=== PATIENT | female | born 2000 ===

== ENCOUNTER 2018-06-19 13:15 | Inpatient (IN) ==
[2018-06-19] MEDS ORDERED: BUTORPHANOL 2 MG/ML VIAL IV PRN (13:54)
[2018-06-19] MEDS ORDERED: ONDANSETRON 4 MG/2 ML VIAL IV PRN (13:54)
[2018-06-19 14:55] LABS: Basophils % 0.2 % (0.0-0.8); Eosinophils # 0.1 10*3/uL (0.0-0.87); Hemoglobin 11.1 GM/DL (12.0-16.0); Immature Granulocytes % 0.7 %; Immature Granulocytes Absolute 0.07 #; Lymphocytes # 2.3 10*3/uL (1.4-4.0); Mean Corpuscular HGB Conc 32.6 GM/DL (32-36); Mean Corpuscular Hemoglobin 28 PG (27-34); Mean Corpuscular Volume 86.3 FL (87-102); Mean Platelet Volume 10.1 FL (9.6-12.0); Monocytes # 0.8 10*3/uL (0.11-0.8); Monocytes % 8.8 % (1.7-12.7); Neutrophils # 6.2 10*3/uL (1.4-7.4); Neutrophils % 65.3 % (38.7-73.9); Platelet Count 341 T/CUMM (130-400); Red Blood Count 3.94 MC/CUMM (3.8-5.5); Red Cell Distribution Width 14.4 % (9.3-17.3); White Blood Count 9.5 T/CUMM (4-12)
[2018-06-19 15:23] LABS: Albumin 2.2 G/DL (3.4-5.0); Bilirubin,Total 0.4 MG/DL (0.2-1.0); Calcium 8.1 MG/DL (8.5-10.1); Osmolality,Calculated 277.3 MOS/KG (273-304); Potassium 3.9 MMOL/L (3.5-5.1); Total Protein 6.6 G/DL (6.4-8.3)
[2018-06-20] MEDS: LACTATED RINGERS 1,000 ML IV SCH ×5 (03:50→20:27)
[2018-06-20] MEDS ORDERED: CITRIC ACID/SODIUM CITRATE 30 ML UDCUP PO ONE (04:41)
[2018-06-20] MEDS ORDERED: diphenhydrAMINE 50 MG/1 ML VIAL IV PRN ×2 (04:41)
[2018-06-20] MEDS ORDERED: ePHEDrine 50 MG/ML AMP IV PRN (04:41)
[2018-06-20] MEDS ORDERED: FAMOTIDINE 20 MG/2 ML VIAL IV ONE (04:41)
[2018-06-20] MEDS ORDERED: PROMETHAZINE 25 MG/1 ML VIAL IM ONE (04:41)
[2018-06-20] MEDS ORDERED: LACTATED RINGERS 1,000 ML IV ONE (04:41)
[2018-06-20] MEDS ORDERED: hydrOXYzine HCL 25 MG/1 ML VIAL IM PRN (04:41)
[2018-06-20] MEDS ORDERED: NALOXONE 0.4 MG/ML VIAL IV PRN (04:41)
[2018-06-20] MEDS: OXYTOCIN/LR 20 UNIT/1,000 ML BAG IV SCH (05:45)
[2018-06-20] MEDS ORDERED: ceFAZolin 3,000 MG in SYRINGE 1 EACH IV ONE (07:41)
[2018-06-20] MEDS ORDERED: OXYTOCIN/LR 20 UNIT/1,000 ML BAG IV ONE ×2 (07:45→08:34)
[2018-06-20] MEDS ORDERED: SODIUM CHLORIDE 0.9% 100 ML IV ONE (07:57)
[2018-06-20] MEDS ORDERED: SIMETHICONE CHEW 80 MG TABLET PO PRN (08:34)
[2018-06-20] MEDS ORDERED: ACETAMINOPHEN 325 MG TABLET PO PRN (08:34)
[2018-06-20] MEDS ORDERED: ONDANSETRON 4 MG/2 ML VIAL IV PRN (08:34)
[2018-06-20] MEDS ORDERED: RHO(D) IMMUNE GLOBULIN 300 MCG SYRINGE IM ONE (08:34)
[2018-06-20] MEDS ORDERED: MORPHINE 10 MG/10 ML VIAL ONE (08:45)
[2018-06-20] MEDS ORDERED: BUPIVACAINE SPINAL 0.75% 2 ML AMP SPINAL ONE (08:46)
[2018-06-20] MEDS ORDERED: fentaNYL 100 MCG/2 ML VIAL ONE (08:46)
[2018-06-20 11:06] LABS: Apearance,Urine Slightly Hazy (Clear); Bilirubin,Urine Negative (Negative); Blood, Urine Large mg/dL (Negative); Glucose,Urine (UA) Negative (Negative); Ketones,Urine 5 mg/dL (Negative); Mucus,Urine Occasional /LPF (Occasional); Nitrite,Urine Negative (Negative); Protein,Urine 100 MG/DL; RBC,Urine 100 /HPF (0-4); Squamous Epithelial Cell,Urine Occasional /HPF (0-10); Urine Color Yellow (Yellow); Urine Specific Gravity 1.018 (1.001-1.035); Urine Urobilinogen < 2.0 EU/DL (0.2-1.0); WBC,Urine 3 /HPF (0-6)
[2018-06-20] MEDS: ceFAZolin 1,000 MG in SYRINGE 1 EACH IV SCH (15:41)
[2018-06-20 16:40] LABS: Basophils % 0.1 % (0.0-0.8); Eosinophils % 0.1 % (0.00-10.9); Hematocrit 32.3 VOL% (35.7-47.0); Hemoglobin 10.7 GM/DL (12.0-16.0); Immature Granulocytes % 0.5 %; Immature Granulocytes Absolute 0.08 #; Lymphocytes % 13.5 % (21.3-54.2); Mean Corpuscular HGB Conc 33.1 GM/DL (32-36); Mean Corpuscular Hemoglobin 28 PG (27-34); Mean Corpuscular Volume 85.4 FL (87-102); Mean Platelet Volume 10.1 FL (9.6-12.0); Monocytes # 1.1 10*3/uL (0.11-0.8); Monocytes % 7.1 % (1.7-12.7); Neutrophils # 11.9 10*3/uL (1.4-7.4); Neutrophils % 78.7 % (38.7-73.9); Platelet Count 283 T/CUMM (130-400); Red Blood Count 3.78 MC/CUMM (3.8-5.5); Red Cell Distribution Width 14.3 % (9.3-17.3); White Blood Count 15.1 T/CUMM (4-12)
[2018-06-20] MEDS: fentaNYL 2 MCG/ROPIV 0.2% EPID 100 ML EPIDURAL SCH (20:25)
[2018-06-20] MEDS: DOCUSATE SODIUM 100 MG CAPSULE PO SCH ×2 (20:26→23:01)
[2018-06-20] MEDS: MULTIVITAMIN (PRENATAL) TABLET PO SCH (20:27)
[2018-06-20] MEDS ORDERED: ceFAZolin 1,000 MG in SYRINGE 1 EACH IV SCH (23:30)
[2018-06-21] MEDS: ceFAZolin 1,000 MG in SYRINGE 1 EACH IV SCH (00:50)
[2018-06-21] MEDS: LACTATED RINGERS 1,000 ML IV SCH ×5 (04:34→22:30)
[2018-06-21 06:00] LABS: Basophils % 0.2 % (0.0-0.8); Eosinophils % 0.2 % (0.00-10.9); Hematocrit 32.1 VOL% (35.7-47.0); Hemoglobin 10.6 GM/DL (12.0-16.0); Immature Granulocytes % 0.4 %; Immature Granulocytes Absolute 0.05 #; Lymphocytes # 2.1 10*3/uL (1.4-4.0); Lymphocytes % 16.7 % (21.3-54.2); Mean Corpuscular Hemoglobin 28 PG (27-34); Mean Corpuscular Volume 84.7 FL (87-102); Mean Platelet Volume 10.2 FL (9.6-12.0); Monocytes # 0.7 10*3/uL (0.11-0.8); Monocytes % 5.9 % (1.7-12.7); Neutrophils # 9.6 10*3/uL (1.4-7.4); Neutrophils % 76.6 % (38.7-73.9); Platelet Count 276 T/CUMM (130-400); Red Blood Count 3.79 MC/CUMM (3.8-5.5); Red Cell Distribution Width 14.6 % (9.3-17.3); White Blood Count 12.5 T/CUMM (4-12)
[2018-06-21] MEDS: MAGNESIUM HYDROXIDE SUSP 30 ML UDCUP PO PRN ×2 (08:42→19:44)
[2018-06-21] MEDS: DOCUSATE SODIUM 100 MG CAPSULE PO SCH ×3 (08:43→22:28)
[2018-06-21] MEDS: MULTIVITAMIN (PRENATAL) TABLET PO SCH (08:43)
[2018-06-21] MEDS: IBUPROFEN 800 MG TABLET PO PRN ×2 (08:45→19:43)
[2018-06-21] MEDS ORDERED: BISACODYL 10 MG SUPP RECTAL PRN (22:10)
[2018-06-21] MEDS: fentaNYL 2 MCG/ROPIV 0.2% EPID 100 ML EPIDURAL SCH (22:29)
[2018-06-21] MEDS: OXYTOCIN/LR 20 UNIT/1,000 ML BAG IV SCH (22:29)
[2018-06-22] MEDS: IBUPROFEN 800 MG TABLET PO PRN (04:26)
[2018-06-22] MEDS: LACTATED RINGERS 1,000 ML IV SCH (05:46)
[2018-06-22] MEDS: OXYTOCIN/LR 20 UNIT/1,000 ML BAG IV SCH (05:46)
[2018-06-22 07:20] VITALS: BP 120/67
[2018-06-22] MEDS: MULTIVITAMIN (PRENATAL) TABLET PO SCH (09:02)
[2018-06-22] MEDS: DOCUSATE SODIUM 100 MG CAPSULE PO SCH (09:02)
[2018-06-22] MEDS ORDERED: DIPH/TET/ACEL PERT BOOSTER VACCINE 0.5 ML VIAL IM ONE (10:08)
== END 2018-06-22 13:10 | disposition home or self-care (01) | DRG 540 ==
LOC: N.LDOUT 13:15 → N.LD 13:18 → N.OB 06-20 11:56
PROVIDERS: ADMIT Obstetrics & Gynecology; ATTEND Obstetrics & Gynecology
PROC: LDCSECT (ICD-10-PCS; 2018-06-20 07:45)